=== PATIENT | female | born 1980 | race Caucasian/White ===

== ENCOUNTER 2024-12-13 10:04 | Day surgery (SDC) | payer BC ==
[2024-12-11 09:02] VITALS: BMI 27.3
[~2024-12-13 10:04] MED LIST: HYDROmorphone 0.5 MG/0.5 ML SYRINGE IVP PRN
[2024-12-13] MEDS: IV FLUID CONTINUATION 1,000 ML IV ONE (11:15)
[2024-12-13] MEDS: MIDAZOLAM 2 MG/2 ML VIAL IV PRN (11:20)
[2024-12-13] MEDS: fentaNYL (PF) 50 MCG/ML 2 ML AMP IVP PRN (11:20)
[2024-12-13] MEDS: LACTATED RINGERS 1,000 ML IV SCH (11:32)
[2024-12-13] MEDS: DEXAMETHASONE SOD PHOSPHATE 4 MG/ML 1 ML VIAL IV ONE (11:32)
[2024-12-13] MEDS: ONDANSETRON 4 MG/2 ML VIAL IVP ONE (11:32)
[2024-12-13] MEDS: SCOPOLAMINE 1 MG/72 HR PATCH TRANSDERM ONE (11:33)
[2024-12-13] MEDS ORDERED: fentaNYL (PF) 50 MCG/ML 2 ML AMP ONE (12:15)
[2024-12-13] MEDS ORDERED: PROPOFOL 10 MG/ML 20 ML VIAL IV ONE (12:15)
[2024-12-13] MEDS ORDERED: ROPIVACAINE 5 MG/ML 30 ML VIAL ONE (12:15)
[2024-12-13] MEDS ORDERED: DEXAMETHASONE SOD PHOSPHATE 4 MG/ML 1 ML VIAL ONE (12:15)
[2024-12-13] MEDS ORDERED: SUCCINYLCHOLINE CHLORIDE 200 MG/10 ML VIAL IV ONE (12:15)
[2024-12-13] MEDS ORDERED: WATER FOR INJECTION, STERILE 10 ML VIAL IV ONE (12:15)
[2024-12-13] MEDS ORDERED: MIDAZOLAM 2 MG/2 ML VIAL ONE (12:15)
[2024-12-13] MEDS ORDERED: LIDOCAINE 1% INJ 10MG/ML (20 ML MDV) ONE (12:15)
[2024-12-13] MEDS ORDERED: ePHEDrine 50 MG/ML 1 ML VIAL ONE (12:15)
[2024-12-13] MEDS: ceFAZolin 2 GM in DEXTROSE 5% IN WATER 50 ML IVPB PRN (12:24)
[2024-12-13] MEDS: ceFAZolin 1,000 MG in SODIUM CHLORIDE 0.9% 1,000 ML IRRIGATION ONE (12:24)
--- NOTE | 2024-12-13 13:31 | FL ---
EXAMINATION TYPE: FL guidance operating room, XR ankle complete LT DATE OF EXAM: 12/13/2024 CLINICAL INDICATION: Female, 44 years old with history of ORIF Left Ankle, fracture and pain. TECHNIQUE: Fluoroscopy. Intraoperative 3 views left ankle. COMPARISON: None. FINDINGS: Fluoroscopic guidance was provided during open reduction internal fixation procedure perfo rmed by Dr. Hazel. A total of 14.7 seconds of fluoroscopic time was utilized during the procedure an d 3 spot images was acquired. Images acquired show placement of lateral fixating plate and additional fixating screw through the lateral malleolus. Alignment is satisfactory on intraoperative images obt ained. TOTAL DAP = 0.1092 Gycm2. IMPRESSION: As Above. [facility], , 12/13/2024 1:28 PM
--- NOTE | 2024-12-13 13:32 | P.OP ---
Date of Procedure: 12/13/24 Preoperative Diagnosis: Displaced lateral malleolus fracture left ankle Postoperative Diagnosis: Same Procedure(s) Performed: Open reduction with internal fixation left lateral malleolus fracture Implants: [place] precontoured anatomic lateral malleolus plate with 3.5 locking and nonlocking screws. 2.7 nonlocking screw x 1 Anesthesia: ROBERT Surgeon: Panfilo Hazel Estimated Blood Loss (ml): 5 Pathology: none sent Condition: stable Disposition: PACU Description of Procedure: Prior to the patient being brought to the operative room, anesthesia administered a nerve block on the left lower extremity. The patient was brought into the op room placed on table in supine position. Timeout was taken to confirm correct patient identifiers, correct laterality of surgery, and correct procedure. Once all staff in the room was in agreement the timeout, the patient was induced placed under general anesthesia. Well-padded tourniquet was placed left ankle and a bump beneath the left hip to internally rotate the left leg. The left leg was prepped and draped usual manner. The left leg was exsanguinated, the knee flexed, and the tourniquet inflated to 250 mmHg. Attention was directed over the lateral malleolus where a straight linear incision was made. The incision was deepened down to the subcutaneous tissue careful to identify, avoid, and retract any neurovascular structures and cauterize any bleeding vessels. Blunt dissection was continued down to the periosteum. The periosteum was incised and reflected anteriorly and posteriorly to expose the fracture. The fracture fragments were distracted so that all interposing soft tissue and hematoma could be removed. The area was then thoroughly irrigated with antibiotic saline. Bone reduction forceps were utilized to rotate and reduce the fracture back into anatomic alignment. This was confirmed under fluoroscopy. Drilling for a 2.7 interfragmentary screw was done across the fracture site but perpendicular to the fracture line. The screw was inserted and advanced until it compressed the fracture. Fluoroscopic imaging showed proper placement of the screw. A [place] precontoured lateral malleoli are plate was positioned laterally. It was adjusted under fluoroscopy until properly aligned and then temporarily fixated. A 3.5 mm nonlocking screw was placed proximal to the fracture to bring the plate in better contact with the bone. And then a nonlocking screw was placed in the hole proximal. A 3.5 mm nonlocking screw was placed through the distal holes. The drilling for these holes was done under direct fluoroscopic visualization so that the cortex was penetrated at the joint level. The nonlocking screw was utilized to help contoured the plate down to bone. Then 2 additional 3.5 locking screws were placed distally. The last screw was another 3.5 millimeter screw in the proximal set of holes. Final fluoroscopic imaging showed anatomic alignment of the fracture. All hardware was properly aligned. The wound was thoroughly irrigated with antibiotic saline. Deep closure was done with 2-0 Vicryl. Subcutaneous closure was done with 4-0 Monocryl. Skin closure was done with 4-0 Stratafix in a running subcuticular manner. Dermal glue was placed over the in cision and then covered with Steri-Strips. Arthrex jumpstart and dry sterile dressing were applied to the left ankle. The tourniquet was released and capillary refill returned to all digits on the foot. The patient was placed in a below-knee fracture boot keeping the ankle in neutral position. Anesthesia was reversed and the patient was taken recovery with vital signs stable.
[2024-12-13 13:38] VITALS: TEMP 97.5
[2024-12-13 14:55] VITALS: BP 111/70; PULSE 66; RESP 18
--- NOTE | 2024-12-13 15:36 | P.ANPRN ---
Procedure Note - Anesthesia - Nerve Block Performed Left Popliteal Single Time Out Performed: Yes (1118) Date of Procedure: 12/13/24 Procedure Start Time: 11:19 Procedure Stop Time: :24 Location of Patient: PreOp Indication: Acute Post-Operative Pain, Requested by Surgeon Specifically requested for management of pain by DrSweetie: Panfilo Hazel Sedation Type: Sedate with meaningful contact maintained Preparation: Sterile Prep Position: Right Lateral Catheter: None Needle Types: Pajunk Needle Gauge: 21 Ultrasound used to visualize needle placement: Yes Ultrasound used to observe medication spread: Yes Injectate: 0.5% Ropivacaine (see comment for volume) (30cc+decadron 4mg) Blood Aspirated: No Pain Paresthesia on Injection Noted: No Resistance on Injection: Normal Image Stored and Saved: Yes Events: Uneventful and Well Tolerated
== END 2024-12-13 15:40 | disposition home or self-care (01) ==
LOC: OR 10:04
PROVIDERS: ATTEND Podiatrist
DX: S82.62XA Displaced fracture of lateral malleolus of left fibula, initial encounter for closed fracture (principal); E78.5 Hyperlipidemia, unspecified; F41.9 Anxiety disorder, unspecified; K21.9 Gastro-esophageal reflux disease without esophagitis; G43.909 Migraine, unspecified, not intractable, without status migrainosus; X58.XXXA Exposure to other specified factors, initial encounter; Z88.0 Allergy status to penicillin; Z79.899 Other long term (current) drug therapy
CPT/HCPCS: 81025; 64445; 73610; 27792; C1713; J2250; J0330; J1100; J0690 ×2; J2405; J2003; J3010; J2795; J2704